=== PATIENT | male | born 1930 | race Asian ===

== ENCOUNTER → 2017-08-19 | Outpatient (CLI) | END | disposition home or self-care (01) ==

== ENCOUNTER → 2017-10-21 | Outpatient (CLI) | END | disposition home or self-care (01) ==

== ENCOUNTER → 2017-11-01 | Outpatient (CLI) | END | disposition home or self-care (01) ==

== ENCOUNTER → 2017-11-11 | Outpatient (CLI) | END | disposition home or self-care (01) ==

== ENCOUNTER 2018-06-26 20:47 | Emergency (ER) | payer MEDICARE, OTHER ==
[~2018-06-26] VITALS: Ht 152.4 cm; Wt 61.6 kg
[2018-06-26 21:13] VITALS: Ht 152.4 cm; Wt 61.6 kg
[2018-06-26] MEDS ORDERED: ACETAMINOPHEN 325 MG TAB PO ONE (22:30)
[2018-06-26 23:46] VITALS: BP 135/62; PULSE 93; RESP 18
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
== END 2018-06-26 23:47 | disposition home or self-care (01) ==
LOC: E/R 20:47
DX: R04.0 Epistaxis (principal); Z79.82 Long term (current) use of aspirin
CPT/HCPCS: 70450; 72125